=== PATIENT | male | born 1960 | race Caucasian/White ===

== ENCOUNTER → 2023-03-03 | Outpatient (CLI) | payer BC ==
[2023-03-03 11:24] LABS: BASO # 0.03 K/mm3 (0.02-0.10); EOS # 0.11 K/mm3 (0.04-0.40); EOS % 2.4 % (0.0-4.0); HEMATOCRIT 42.8 % (42.0-52.0); HEMOGLOBIN 14.3 g/dL (13.5-18.0); LYMPH# 1.79 K/mm3 (1.50-4.00); MEAN CELL VOLUME 96 fl (78-100); MEAN CORPUSCULAR HEMOGLOBIN 32 pg (27-31); MEAN CORPUSCULAR HGB CONC 33 g/dL (33-37); MEAN PLATELET VOLUME 9.1 fl (7.4-10.4); MONO # 0.28 K/mm3 (0.20-0.80); PLATELET COUNT 245 K/mm3 (130-400); RED BLOOD COUNT 4.47 M/mm3 (4.20-5.60); RED CELL DISTRIBUTION WIDTH 12.6 % (11.5-14.5); WHITE BLOOD COUNT 4.5 K/mm3 (4.8-10.8)
[2023-03-03 11:28] LABS: ALBUMIN 4.2 g/dL (3.4-4.8); POTASSIUM 4.5 mmol/L (3.5-5.1)
[2023-03-03 11:30] LABS: CALCIUM 9.6 mg/dL (8.3-10.5)
[2023-03-03 11:31] LABS: TOTAL PROTEIN 7.3 g/dL (6.2-8.1)
[2023-03-03 11:33] LABS: TOTAL BILIRUBIN 0.6 mg/dL (0.2-1.2)
== END ==
LOC: LAB 11:05
PROVIDERS: Internal Medicine
DX: C43.4 Malignant melanoma of scalp and neck (principal)

== ENCOUNTER → 2023-08-09 | Outpatient (CLI) | payer BC | LOC: RAD 10:25 | DX: M79.641 Pain in right hand (principal) ==

== ENCOUNTER → 2023-12-23 | Outpatient (CLI) | payer BC | LOC: RAD 16:11 | DX: M19.041 Primary osteoarthritis, right hand (principal) | CPT/HCPCS: A9575 ==

== ENCOUNTER → 2024-04-03 | Day surgery (SDC) | payer BC | END | disposition home or self-care (01) | LOC: MSO | DX: Z12.11 Encounter for screening for malignant neoplasm of colon (principal); D12.2 Benign neoplasm of ascending colon; C43.4 Malignant melanoma of scalp and neck | CPT/HCPCS: 00811; 00812; J2704; J7120 ==

== ENCOUNTER → 2024-04-04 | Outpatient (CLI) | payer BC ==
[2024-04-04 13:34] LABS: BASO # 0.01 K/mm3 (0.02-0.10); EOS # 0.21 K/mm3 (0.04-0.40); EOS % 3.8 % (0.0-4.0); HEMATOCRIT 45.3 % (42.0-52.0); LYMPH# 1.42 K/mm3 (1.50-4.00); MEAN CELL VOLUME 94 fl (78-100); MEAN CORPUSCULAR HEMOGLOBIN 31 pg (27-31); MEAN CORPUSCULAR HGB CONC 33 g/dL (33-37); MEAN PLATELET VOLUME 8.9 fl (7.4-10.4); MONO # 0.33 K/mm3 (0.20-0.80); NEU # 3.58 K/mm3 (1.40-6.50); PLATELET COUNT 229 K/mm3 (130-400); RED BLOOD COUNT 4.81 M/mm3 (4.20-5.60); RED CELL DISTRIBUTION WIDTH 12.2 % (11.5-14.5); WHITE BLOOD COUNT 5.6 K/mm3 (4.8-10.8)
[2024-04-04 13:45] LABS: TOTAL PROTEIN 7.2 g/dL (6.2-8.1)
[2024-04-04 13:47] LABS: TOTAL BILIRUBIN 0.6 mg/dL (0.2-1.2)
== END ==
LOC: LAB 13:20
PROVIDERS: Internal Medicine
DX: C43.4 Malignant melanoma of scalp and neck (principal)

== ENCOUNTER 2024-08-01 03:46 | Emergency (ER) | payer BC ==
[~2024-08-01] VITALS: Ht 195.6 cm; Wt 101.8 kg
[2024-08-01] MEDS ORDERED: TRAMADOL 50 MG TAB PO (04:03)
[2024-08-01] MEDS ORDERED: DULOXETINE60 MG PO (04:03)
[2024-08-01] MEDS ORDERED: fentaNYL 100 MCG/2 ML VIAL IV ONE ×2 (04:15→05:00)
[2024-08-01 04:19] LABS: BASO # 0.01 K/mm3 (0.02-0.10); EOS # 0.19 K/mm3 (0.04-0.40); HEMATOCRIT 44.6 % (42.0-52.0); HEMOGLOBIN 15.3 g/dL (13.5-18.0); LYMPH# 1.87 K/mm3 (1.50-4.00); MEAN CELL VOLUME 94 fl (78-100); MEAN CORPUSCULAR HEMOGLOBIN 32 pg (27-31); MEAN CORPUSCULAR HGB CONC 34 g/dL (33-37); MEAN PLATELET VOLUME 8.7 fl (7.4-10.4); MONO # 0.54 K/mm3 (0.20-0.80); NEU # 3.72 K/mm3 (1.40-6.50); PLATELET COUNT 228 K/mm3 (130-400); RED BLOOD COUNT 4.76 M/mm3 (4.20-5.60); RED CELL DISTRIBUTION WIDTH 12.9 % (11.5-14.5); WHITE BLOOD COUNT 6.4 K/mm3 (4.8-10.8)
[2024-08-01 04:38] LABS: ALBUMIN 4.1 g/dL (3.4-4.8)
[2024-08-01 04:41] LABS: TOTAL PROTEIN 7.5 g/dL (6.2-8.1)
[2024-08-01 04:43] LABS: TOTAL BILIRUBIN 0.6 mg/dL (0.2-1.2)
[2024-08-01] MEDS ORDERED: Ketorolac 30 MG/ML VIAL IV ONE (05:00)
[2024-08-01] MEDS ORDERED: Iohexol 300 - 100 ML VIAL IV ONE (05:34)
[2024-08-01 05:58] LABS: URINE WBC 0 /hpf (0-3)
[2024-08-01 06:11] LABS: PH-URINE 5.5 (5.0 - 8.0); URINE APPEARANCE CLEAR (CLEAR); URINE BILIRUBIN NEGATIVE (NEGATIVE); URINE BLOOD NEGATIVE (NEGATIVE); URINE COLOR YELLOW (YELLOW); URINE GLUCOSE NEGATIVE (NEGATIVE); URINE KETONE NEGATIVE (NEGATIVE); URINE LEUKOCYTE ESTERASE NEGATIVE (NEGATIVE); URINE NITRATE NEGATIVE (NEGATIVE); URINE PROTEIN(semi-quant) NEGATIVE (NEGATIVE)
[2024-08-01 06:12] LABS: URINE MUCUS PRESENT (NOT PRESENT)
[2024-08-01] MEDS ORDERED: Home Cyclobenzaprine 10 MG #2 TABS/PACK PO PRN (06:15)
[2024-08-01] MEDS ORDERED: Home HYDROcodone/Acetaminophen 5/325 MG #4 TABS/PACK PO SCH (06:16)
[2024-08-01 06:58] VITALS: BP 116/70
== END 2024-08-01 06:59 | disposition home or self-care (01) ==
LOC: ED 03:46
PROVIDERS: Nurse Practitioner Family
DX: R10.11 Right upper quadrant pain (principal)
CPT/HCPCS: J1885; J3010; Q9967

== ENCOUNTER 2024-08-03 07:24 | Emergency (ER) | payer BC ==
[~2024-08-03 07:24] MED LIST: DULOXETINE60 MG PO; TRAMADOL 50 MG TAB PO
[2024-08-03 07:56] LABS: BASO # 0.03 K/mm3 (0.02-0.10); EOS # 0.18 K/mm3 (0.04-0.40); EOS % 3.1 % (0.0-4.0); HEMATOCRIT 44.1 % (42.0-52.0); HEMOGLOBIN 14.8 g/dL (13.5-18.0); LYMPH# 1.64 K/mm3 (1.50-4.00); MEAN CELL VOLUME 94 fl (78-100); MEAN CORPUSCULAR HEMOGLOBIN 32 pg (27-31); MEAN CORPUSCULAR HGB CONC 34 g/dL (33-37); MEAN PLATELET VOLUME 8.6 fl (7.4-10.4); MONO # 0.47 K/mm3 (0.20-0.80); PLATELET COUNT 232 K/mm3 (130-400); RED BLOOD COUNT 4.69 M/mm3 (4.20-5.60); RED CELL DISTRIBUTION WIDTH 12.6 % (11.5-14.5); WHITE BLOOD COUNT 5.7 K/mm3 (4.8-10.8)
[2024-08-03] MEDS ORDERED: NS 1,000 ML IV SCH (08:00)
[2024-08-03] MEDS ORDERED: Ketorolac 30 MG/ML VIAL IV ONE (08:00)
[2024-08-03] MEDS ORDERED: Ondansetron 4 MG/2 ML VIAL IV ONE (08:00)
[2024-08-03 08:08] LABS: CALCIUM 10.2 mg/dL (8.3-10.5)
[2024-08-03 08:09] LABS: ALBUMIN 4.1 g/dL (3.4-4.8)
[2024-08-03 08:12] LABS: TOTAL PROTEIN 7.6 g/dL (6.2-8.1)
[2024-08-03 08:13] LABS: TOTAL BILIRUBIN 0.6 mg/dL (0.2-1.2)
[2024-08-03] MEDS ORDERED: fentaNYL 100 MCG/2 ML VIAL IV ONE (08:15)
[2024-08-03 08:51] LABS: URINE APPEARANCE CLEAR (CLEAR); URINE COLOR YELLOW (YELLOW)
[2024-08-03 08:52] LABS: URINE BILIRUBIN NEGATIVE (NEGATIVE); URINE GLUCOSE NEGATIVE (NEGATIVE); URINE KETONE NEGATIVE (NEGATIVE); URINE NITRATE NEGATIVE (NEGATIVE); URINE PROTEIN(semi-quant) NEGATIVE (NEGATIVE)
[2024-08-03 08:53] LABS: URINE BLOOD TRACE-INTACT (NEGATIVE); URINE LEUKOCYTE ESTERASE NEGATIVE (NEGATIVE); URINE WBC 0-1 /hpf (0-3)
[2024-08-03] MEDS ORDERED: Home HYDROcodone/Acetaminophen 5/325 MG #4 TABS/PACK PO ONE (09:30)
[2024-08-03 09:49] VITALS: BP 127/83
== END 2024-08-03 09:41 | disposition home or self-care (01) ==
LOC: ED 07:24
PROVIDERS: Nurse Practitioner
DX: R10.11 Right upper quadrant pain (principal)
CPT/HCPCS: J1885; J2405; J3010; J7030